=== PATIENT | female | born 1995 | race Caucasian/White ===

== ENCOUNTER 2019-05-15 10:28 | Emergency (ER) | payer OTHER ==
[~2019-05-15] VITALS: Ht 160 cm; Wt 95.7 kg
[2019-05-15 10:49] VITALS: BP_SYST 112
[2019-05-15 12:31] VITALS: BP_SYST 112
== END 2019-05-15 12:31 | disposition home or self-care (01) ==
LOC: SED 10:28
DX: Z48.01 Encounter for change or removal of surgical wound dressing (principal)
CPT/HCPCS: 99281